=== PATIENT | male | born 1965 | race Caucasian/White ===

== ENCOUNTER 2023-06-11 14:47 | Emergency (ER) | payer SELFPAY ==
[2023-06-11] MEDS ORDERED: PHENobarbital Sodium 65 MG/ML VIAL ONE ×2 (15:27→16:50)
[2023-06-11] MEDS ORDERED: Thiamine HCl 200 MG/2 ML VIAL ONE (15:27)
[2023-06-11] MEDS ORDERED: Folic Acid 1 MG TAB ONE (15:28)
[2023-06-11] MEDS ORDERED: Magnesium 2 GM/50 ML BAG (IN WATER) ONE (15:28)
[2023-06-11] MEDS ORDERED: Multivit, Therapeutic 1 TAB PO SCH (15:45)
[2023-06-11] MEDS ORDERED: Diazepam 10 MG/2 ML SYRINGE ONE ×2 (17:39→18:44)
[2023-06-11 18:40] LABS: #Basophils 0.1 10x3/uL (0.0-0.2); #Monocytes 0.5 10x3/uL (0.0-1.1); #Neutrophils 3.3 10x3/uL (1.5-8.4); %Basophils 1.1 % (0.0-2.0); %Eosinophils 0.2 % (0.0-6.0); %Lymphocytes 17.5 % (18.0-47.0); %Monocytes 10.8 % (0.0-10.0); %Neutrophils 69.6 % (40.0-75.0); Hemoglobin 13.1 g/dL (13.5-17.5); Mean Corpuscular HGB CONC 35.4 g/dL (32.0-36.0); Mean Corpuscular Hemoglobin 32.1 pg (27.0-33.0); Mean Corpuscular Volume 90.7 fl (81.2-95.1); Mean Platelet Volume 9.9 fl (7.4-10.4); Platelet Count 97 10x3/uL (150-450); RBC Distribution Width 14.3 % (11.5-14.5); Red Blood Cell (RBC) Count 4.08 10x6/uL (4.32-5.72); White Blood Cell (WBC) Count 4.7 10x3/uL (3.5-10.5)
[2023-06-11 18:46] LABS: ALT (SGPT) 92 U/L (8-55); AST (SGOT) 106 U/L (5-34); Albumin 4.1 g/dL (3.5-5.0); Alkaline Phosphatase 65 U/L (40-110); Anion Gap 18 mmol/L (10-20); BUN (Urea Nitrogen) 8 mg/dL (8.4-25.7); Bilirubin, Total 1.1 mg/dL (0.2-1.2); Calc. Creatinine Clearance 0 mL/min (70-130); Calcium 8.7 mg/dL (7.8-10.44); Carbon Dioxide 22 mmol/L (22-29); Chloride 99 mmol/L (98-107); Estimated GFR 108; Globulin 3.2 g/dL (2.4-3.5); Glucose 86 mg/dL (70-105); Magnesium 2.4 mg/dL (1.6-2.6); Potassium 4.1 mmol/L (3.5-5.1); Protein, Total 7.3 g/dL (6.0-8.3); Sodium 135 mmol/L (136-145)
[2023-06-11 18:55] LABS: RBC Morph Comment Within Normal Limits
[2023-06-11 18:56] LABS: Platelet Adequacy Comment Platelets Decreased
[2023-06-11] MEDS ORDERED: chlordiazePOXIDE HCl 25 MG CAP ONE (19:15)
== END 2023-06-11 20:28 | disposition home or self-care (01) ==
LOC: CSHERS 14:47
DX: F10.239 Alcohol dependence with withdrawal, unspecified (principal)
CPT/HCPCS: 80053; 83735; 84100; 85025; 96374; 96375; 96376; J2560; J3360; J3411; J3475